=== PATIENT | female | born 1935 ===

== ENCOUNTER 2018-12-10 13:45 | Outpatient (CLI) | payer MEDICARE, OTHER | END 2018-12-10 13:46 | disposition home or self-care (01) | LOC: C.PAT 13:45 | DX: C50.911 Malignant neoplasm of unspecified site of right female breast (principal) ==

== ENCOUNTER 2018-12-16 09:33 | Day surgery (SDC) | payer MEDICARE, OTHER ==
[2018-12-16 10:22] VITALS: BMI 29.5
[2018-12-16] MEDS ORDERED: Lidocaine Hydrochloride 0 ML INJ ONE (14:14)
[2018-12-16] MEDS ORDERED: Bupivacaine 0.5%/Epi 1:200,000 (10 ML SOL) ONE (14:14)
[2018-12-16] MEDS ORDERED: ceFAZolin 1 gm in NS 0 GM/0 ML BAG IVPB ONE (14:15)
[2018-12-16] MEDS ORDERED: Clindamycin 600mg/50ml NS 600 MG/50 ML BAG IVPB ONE (15:02)
[2018-12-16] MEDS ORDERED: Lidocaine/Epinephrine 1% 1:100000 10 ML IJ ONE (15:02)
[2018-12-16] MEDS ORDERED: Bupivacaine 0.25% 20 ML INJ IJ ONE (15:02)
[2018-12-16] MEDS ORDERED: Propofol 10 mg/ml Inj (20 ML) ONE (15:03)
[2018-12-16] MEDS ORDERED: Midazolam 2 MG/2 ML VIAL ONE (15:03)
[2018-12-16] MEDS ORDERED: Sodium Chloride 0.9% 20 ML IV ONE (15:08)
[2018-12-16] MEDS: HEPARIN-NS 5,000 UNITS/500 ML 5,000 UNIT/500 ML BAG IV ONE ×2 (15:20→15:21)
--- NOTE | 2018-12-16 15:56 | PCM.SURG1 ---
Surgeon's Initial Post Op Note - Surgeon's Notes Surgeon: Jamie Fernández MD Ob/Gyn: Miladis Haley, PGY-2 Type of Anesthesia: General LMA Anesthesia Administered By: Dr. Kaiser Pre-Operative Diagnosis: Requires chemotherapy Operative Findings: LIJ port insertion Post-Operative Diagnosis: requires chemotherapy for cancer Operation Performed: LIJ port insertion Specimen/Specimens Removed: None Estimated Blood Loss: EBL {In ML}: 1 Blood Products Given: N/A Drains Used: No Drains Post-Op Condition: Good Date of Surgery/Procedure: 12/16/18 Time of Surgery/Procedure: 15:55
[2018-12-16] MEDS ORDERED: HYDROmorphone 0.5 mg/0.5 ml ISec IVP PRN (16:04)
--- NOTE | 2018-12-16 17:07 | RAD ---
HISTORY: LIJ nam insertion, in PACU COMPARISON: Chest x-ray performed 12/10/18 TECHNIQUE: Chest, one view. FINDINGS: Examination limited by habitus and hypoinflation. Left-sided MediPort with distal tip at the level of the SVC. LUNGS: No focal consolidation. Please note that chest x-ray has limited sensitivity for the detection of pulmonary masses. PLEURA: No significant pleural effusion identified. No definite pneumothorax . CARDIOVASCULAR: Cardiomegaly. Atherosclerotic calcifications present. OSSEOUS STRUCTURES: Degenerative changes. VISUALIZED UPPER ABDOMEN: Right upper quadrant surgical clips. OTHER FINDINGS: None. IMPRESSION: Left-sided MediPort with distal tip at the expected location of the SVC.
[2018-12-16 17:25] VITALS: RESP 18; O2SAT 96
[2018-12-16 18:04] VITALS: BP 166/66; PULSE 72; TEMP 97.7
--- NOTE | 2018-12-17 09:39 | RAD ---
PROCEDURE: HISTORY: As above COMPARISON: None TECHNIQUE: Total fluoroscopic time utilized during the procedure: 11.5 seconds ; 0.80117 mGy cm 2 FINDINGS: Submitted images from the current procedure: 6 Please refer to the physician's notes performing the procedure. IMPRESSION: Less than 1 hour fluoroscopic time utilized during performance of the procedure
--- NOTE | 2018-12-18 01:38 | OP ---
PROCEDURE DATE: 12/16/2018 PREOPERATIVE DIAGNOSIS: Metastatic breast cancer. POSTOPERATIVE DIAGNOSIS: Metastatic breast cancer. PROCEDURE DONE: 1. Port-A-Cath insertion left IJ. 2. Ultrasound-guided venous access. 3. Intraoperative fluoroscopy. SURGEON: Jamie Fernández MD CAREER DEVELOPMENT ENGINEER: Miladis Haley DO, PGY-2 resident ANESTHESIA: General endotracheal tube anesthesia. ESTIMATED BLOOD LOSS: Around 10 mL. DRAINS: None. PATHOLOGY: None. COMPLICATIONS: None. INTRAOPERATIVE FINDINGS: The patient had patent left IJ on ultrasound. DESCRIPTION OF PROCEDURE: On intraoperative steps, this 83-year-old female was diagnosed with a metastatic breast cancer, and the patient was consented for Port-A-Cath insertion, and the patient was brought to the OR, placed supine on the operating table. After induction of the anesthesia, both upper neck and chest were prepped and draped in a usual sterile fashion. Local anesthesia was injected. Ultrasound-guided venous access was done. Guidewire was placed. Intraoperative fluoroscope confirmation was done for the guidewire and now the pouch was created in the infraclavicular area. The catheter was tunneled from the pouch up to the left IJ insertion site and the catheter was placed in the dilator sheath and the dilator sheath was taken out and intraoperative fluoroscopy confirmation was done. The catheter was connected to the port. Port was accessed and it was functioning without any blockage and the straight heparin was injected to prevent the clotting of the catheter and then the wound was closed in two layers, subcutaneous with 3-0 Vicryl, skin with 4-0 Monocryl and another 4-0 Monocryl at left IJ insertion site and dry sterile dressing was applied. The patient tolerated the procedure well. Count of instrument and gauze was correct. There were no apparent complications. The patient was reversed from anesthesia and sent to the postanesthesia care unit in stable condition. Postoperative chest x-ray was done and there was no pneumothorax. Jamie Fernández MD
== END 2018-12-16 17:46 | disposition home or self-care (01) ==
LOC: C.SDS 09:33
PROVIDERS: ATTEND Surgery Surgical Critical Care
DX: C50.919 Malignant neoplasm of unspecified site of unspecified female breast (principal); C79.9 Secondary malignant neoplasm of unspecified site
CPT/HCPCS: 36561; 71045; J1170; J1644; J2250; J2704; J3010

== ENCOUNTER 2018-12-25 06:37 | Day surgery (SDC) | payer MEDICARE, OTHER ==
[2018-12-25 07:34] VITALS: BMI 29.7
[2018-12-25 07:41] VITALS: RESP 18
[2018-12-25] MEDS ORDERED: Propofol 10 mg/ml Inj (20 ML) ONE ×2 (09:55→10:53)
[2018-12-25] MEDS ORDERED: Lidocaine Hydrochloride 5 ML INJ ONE (09:55)
[2018-12-25 12:04] VITALS: BP 152/79; PULSE 75; TEMP 97
== END 2018-12-25 12:18 | disposition home or self-care (01) ==
LOC: C.ENDO 06:37
PROVIDERS: ATTEND Internal Medicine Gastroenterology
DX: Z12.11 Encounter for screening for malignant neoplasm of colon (principal); D12.0 Benign neoplasm of cecum; D12.5 Benign neoplasm of sigmoid colon; K31.7 Polyp of stomach and duodenum; K29.50 Unspecified chronic gastritis without bleeding; R12 Heartburn; Z87.19 Personal history of other diseases of the digestive system; K57.30 Diverticulosis of large intestine without perforation or abscess without bleeding; K44.9 Diaphragmatic hernia without obstruction or gangrene; I10 Essential (primary) hypertension; M19.90 Unspecified osteoarthritis, unspecified site; M32.9 Systemic lupus erythematosus, unspecified; M81.0 Age-related osteoporosis without current pathological fracture
CPT/HCPCS: 43239; 45380; 45385; 88305; 88312; 88342; J2704